=== PATIENT | female | born 1980 | race Two or more races ===

== ENCOUNTER 2022-07-20 19:32 | Inpatient (IN) | payer MEDICAID, OTHER ==
[~2022-07-20] VITALS: Ht 165.1 cm; Wt 65.8 kg
--- NOTE | 2022-07-20 19:36 | NUR ---
20G IV AT [facility]. BLOOD DRAWN AND SENT TO LAB
--- NOTE | 2022-07-20 19:36 | NUR ---
RT AT PT'S BEDSIDE
--- NOTE | 2022-07-20 19:45 | NUR ---
MAHAMED FROM AN APARTMENT [place]OUTY[place]. LETHARGIC AND IN RESP DISTRESS. PER EMS, PT WAS WALKING DOWN A STAIRWAY WHEN SHE EAMON REPORTED TO HAVE FALLEN FROM THE LAST STEP. PT WAS THEN NOTED UNCONSCIOUS AND UPON EMS ARRIVAL, PT'S O2 SAT WAS NOTED IN THE 80%. PT WAS THEN TRANSPORTED TO HOSPITAL ON CPAP AND WAS SATTING @ 97%. WAS AT THE BEDSIDE. PT ON MONITOR. CA RECEIVED.
--- NOTE | 2022-07-20 19:47 | NUR ---
COVID TEST COLLECTED AND SENT TO LAB
--- NOTE | 2022-07-20 19:50 | NUR ---
XRAY AT BEDSIDE
[2022-07-20] MEDS ORDERED: ETOMIDATE 2 MG/ML VIAL IV ONE (20:00)
[2022-07-20] MEDS ORDERED: PROPOFOL 100 ML IV ONE (20:00)
[2022-07-20] MEDS ORDERED: PROPOFOL 100 ML ONE (20:00)
[2022-07-20] MEDS ORDERED: SUCCINYLCHOLINE CHLORIDE 20 MG/ML VIAL IV ONE (20:00)
[2022-07-20] MEDS ORDERED: IV NS 0.9% 1,000 ML BAG IV ONE ×2 (20:00→20:30)
--- NOTE | 2022-07-20 20:02 | NUR ---
RT Pt orally intubated by ARTURO BENITEZ with 7.5 ETT secured at 22cm at the lip line. Color changed noted on CO2 detector, mist in tube noted, equal breath sounds noted. [facility] on ordered settings of AC mode, rate 18, VT 450, FIO2 100%, PEEP +5. ABG to drawn in an hour. Pt suctioned moderate amount of thick cardona secretions. Alarms set and audible. Vent plugged into red outlet. Ambubag at bedside. Will cont to monitor. Addendum: 07/20/22 at 2243 by AMY CARUSO RT Amended: Links added.
--- NOTE | 2022-07-20 20:02 | NUR ---
PT INTUBATED WITH 20MG ETOMIDATE AND 100MG SUCCICHOLINE. PT INTUBATED WUTH SIZE 7.5 ET TUBE 22 AT THE LIP. POSITIVE FOR COLOR CHANGE.
[2022-07-20 20:07] LABS: HEMATOCRIT 31 % (33-45); HEMOGLOBIN 9.5 g/dL (11.5-14.8); LYMPHOCYTES # (AUTO) 0.5 K/uL (0.8-4.8); LYMPHOCYTES % (AUTO) 7.7 % (20.0-44.0); MEAN CORPUSCULAR HGB CONC 31 g/dl (31.0-36.0); MEAN CORPUSCULAR VOLUME 90 fL (82-100); MONOCYTES # (AUTO) 0.2 K/uL (0.1-1.30); MONOCYTES % (AUTO) 2.9 % (2.0-12.0); NEUTROPHILS # (AUTO) 5.4 K/uL (1.8-8.9); NEUTROPHILS % (AUTO) 89.4 % (43.0-81.0); PLATELET COUNT (AUTO) 204 K/uL (150-450); RED BLOOD CELL COUNT(AUTO) 3.37 MIL/uL (4.0-5.2); WHITE BLOOD COUNT (AUTO) 6.1 K/uL (4.3-11.0)
[2022-07-20] MEDS: CEFTRIAXONE 1GM BAG (ER ONLY) 50 ML IV ONE ×2 (20:07→21:06)
--- NOTE | 2022-07-20 20:09 | NUR ---
14FR OG TUBE INSERTED 60CM AT THE LIP. PLACEMENT CHECKED VIA AUSCULTATION AND GASTRIC CONTENT WITHDRAWEL.
--- NOTE | 2022-07-20 20:10 | NUR ---
XRAY AT BEDSIDE
--- NOTE | 2022-07-20 20:12 | NUR ---
EMT AT BEDSIDE FOR EKG
[2022-07-20 20:16] LABS: CALCIUM, SERUM 8.4 mg/dL (8.5-10.1); CARBON DIOXIDE 14 mmol/L (21-32); CHLORIDE 105 mmol/L (98-107); CREATININE 1.8 mg/dL (0.6-1.3); GLUCOSE 82 mg/dL (74-106); POTASSIUM 2.9 mmol/L (3.5-5.1); SODIUM SERUM 140 mmol/L (136-145); UREA NITROGEN, BLOOD 39 mg/dL (7-18)
[2022-07-20 20:28] LABS: ALANINE AMINOTRANSFERASE 27 U/L (12-78); ALBUMIN 2.1 g/dL (3.4-5.0); ALKALINE PHOSPHATASE 80 U/L (46-116); ASPARTATE AMINOTRANSFERASE 28 U/L (15-37); BILIRUBIN,DIRECT 0.3 mg/dL (0.0-0.2); BILIRUBIN,TOTAL 0.4 mg/dL (0.2-1.0); TOTAL PROTEIN, SERUM 6.4 g/dL (6.4-8.2)
[2022-07-20] MEDS ORDERED: AZITHROMYCIN 500 MG in IV D5W 250 ML IV ONE (20:30)
[2022-07-20] MEDS ORDERED: NOREPINEPHRINE 8 MG in IV NS 0.9% 250 ML IV ONE (20:30)
--- NOTE | 2022-07-20 20:58 | NUR ---
RT AT BEDSIDE FOR ABG
--- NOTE | 2022-07-20 20:59 | NUR ---
PROCAL [id number]
[2022-07-20] MEDS ORDERED: CEFTRIAXONE 1GM BAG (ER ONLY) 50 ML IV ONE (21:02)
--- NOTE | 2022-07-20 21:03 | NUR ---
[facility] PAGED
[2022-07-20 21:09] LABS: ABG BASE EXCESS -17.9 mmol/L; ABG PCO2 37.2 mmHg (35.0-45.0); ABG PH 7.085 (7.350-7.450); ABG PO2 91.5 mmHg (75.0-100.0); COHb 0.5 % (0.5-1.5); MetHb 0.3 % (0.0-1.5); O2Hb 92.6 % (94.0-97.0); SITE, ABG Right Radial
[2022-07-20] MEDS ORDERED: AZITHROMYCIN 500 MG VIAL ONE (21:15)
[2022-07-20] MEDS ORDERED: IV NS 0.9% 500 ML BAG IV ONE (21:30)
--- NOTE | 2022-07-20 21:34 | NUR ---
RN AT BEDSIDE FOR PICC LINE INSERTION
[2022-07-20] MEDS ORDERED: MAG HYDROX/AL HYDROX/SIMETH 30 ML UDC PO PRN (22:30)
[2022-07-20] MEDS ORDERED: methylPREDNISolone SOD SUCC 125 MG/2ML VIAL IV SCH (22:30)
[2022-07-20] MEDS ORDERED: Z GUARD REMEDY 4 OZ OINT TP PRN (22:30)
[2022-07-20] MEDS ORDERED: IV NS 0.9% 1,000 ML IV PRN (22:30)
[2022-07-20] MEDS ORDERED: ZOLPIDEM TARTRATE 5 MG TABLET PO PRN (22:30)
[2022-07-20] MEDS ORDERED: ONDANSETRON HCL/PF 4 MG/2 ML VIAL IVP PRN (22:30)
[2022-07-20] MEDS ORDERED: MAGNESIUM HYDROXIDE 30 ML UDC PO PRN (22:30)
--- NOTE | 2022-07-20 22:44 | NUR ---
REPORT GIVEN TO DEENA
[2022-07-20] MEDS ORDERED: VANCOMYCIN 1.25 GM in IV D5W 250 ML IV ONE (23:00)
[2022-07-20] MEDS ORDERED: PROPOFOL 100 ML IV PRN (23:00)
--- NOTE | 2022-07-20 23:18 | NUR ---
PT TRANSPORTED TO ROOM 260 ON CARDIAC PER ACLS. PRPOPFOL INFUSING AT 40MCG/KG/MIN AND LEVOPHED INFUSING AT 0.4MCG/KG/MIN
[2022-07-20 23:30] LABS: BILIRUBIN,URINE NEGATIVE (NEGATIVE); COLOR,URINE YELLOW (YELLOW); LEUKOCYTE ESTERASE ,URINE NEGATIVE (NEGATIVE); NITRITE, URINE NEGATIVE (NEGATIVE); PROTEIN,URINE 30 mg/dl (NEGATIVE); UGLUCOSE NEGATIVE (NEGATIVE); UROBILINOGEN,URINE 0.2 EU/dL (0.2)
[2022-07-20 23:30] LABS: BILIRUBIN,URINE NEGATIVE (NEGATIVE); COLOR,URINE YELLOW (YELLOW); LEUKOCYTE ESTERASE ,URINE NEGATIVE (NEGATIVE); NITRITE, URINE NEGATIVE (NEGATIVE); PROTEIN,URINE 30 mg/dl (NEGATIVE); UGLUCOSE NEGATIVE (NEGATIVE); UROBILINOGEN,URINE 0.2 EU/dL (0.2)
[2022-07-20] MEDS: NOREPINEPHRINE 8 MG in IV NS 0.9% 242 ML IV PRN (23:30)
[2022-07-20 23:31] VITALS: BP 120/58
[2022-07-20 23:38] LABS: BACTERIA,URINE Rare /HPF (None Seen); RBC,URINE 0-2 /HPF (0-2); SQUAMOUS EPITHELIAL CELL,UR Few /HPF (None Seen)
[2022-07-20 23:39] LABS: BACTERIA,URINE Rare /HPF (None Seen); RBC,URINE 0-2 /HPF (0-2); SQUAMOUS EPITHELIAL CELL,UR Few /HPF (None Seen)
[2022-07-20 23:40] LABS: COARSE GRANULAR CASTS,URINE Rare /LPF (None Seen)
[2022-07-20 23:45] VITALS: BP 117/56
[2022-07-20] MEDS: POTASSIUM CL. PREMIX PERIPHER. 50 ML IV SCH (23:46)
[2022-07-20] MEDS ORDERED: SODIUM BICARBONATE SYR 50 MEQ/50 ML DISP.SYRIN ONE (23:55)
[2022-07-21] VITALS (96 sets, daily range): BP systolic 80–171; BP diastolic 35–104
[2022-07-21] MEDS: PANTOPRAZOLE 40 MG VIAL IV SCH ×2 (00:03→08:29)
[2022-07-21] MEDS: HEPARIN SODIUM, PORCINE 5000 UNITS/1 ML VIAL SQ SCH ×2 (00:03→09:13)
--- NOTE | 2022-07-21 00:05 | NUR ---
RN NOTE 07/20/22 3369 ADMITTED FROM ER WITH DIAGNOSIS OF RESPIRATORY FAILURE. PT ORALLY INTUBATED, CONNECTED TO VENT AC 18 TV 450 FIO2 100% P 5. PT TACHYPNEIC, WITH O2 SAT AT 84-86%. ALREADY ON PROPOFOL AT 50MCG/KG/MIN. RT AT BEDSIDE. NOTIFIED MACHINE ETCHER BAMBI, WITH NEW ORDER TO INCREASE PROPOFOL AND MAY TITRATE UP TO 100MCG/KG/MIN. ALSO NOTIFIED MACHINE ETCHER REGARDING TROPONIN 135 RESULT. PT ON LEVOPHED AT 0.4MCG/KG/MIN. OGT IN PLACE, PATENT. AUSCULTATED FOR PLACEMENT. BILATERAL SOFT WRIST RESTRAINTS ON. MOTLEY CATH IN PLACE, DRAINING BY GRAVITY. KAITLIN PICC AND RAC IV PATENT AND INTACT. SKIN INTACT. ALL BELONGINGS LISTED. WILL CONTINUE TO MONITOR.
[2022-07-21] MEDS ORDERED: VANCOMYCIN 1 GM VIAL ONE (00:06)
[2022-07-21] MEDS: SODIUM BICARBONATE SYR 100 MEQ in IV NS 0.9% 1,000 ML IV PRN ×2 (00:15→10:31)
[2022-07-21] MEDS: POTASSIUM CL. PREMIX PERIPHER. 50 ML IV SCH ×9 (00:21→16:21)
[2022-07-21] MEDS: PROPOFOL 100 ML IV PRN ×7 (00:23→19:48)
[2022-07-21] MEDS ORDERED: NOREPINEPHRINE 8MG/250ML RTU 250 ML IV ONE ×2 (01:54→05:01)
[2022-07-21] MEDS: NOREPINEPHRINE 8 MG in IV NS 0.9% 242 ML IV PRN ×3 (01:57→08:30)
--- NOTE | 2022-07-21 04:01 | NUR ---
RT NOTE ABG OBTAINED AT THIS TIME.
[2022-07-21 04:02] LABS: ABG BASE EXCESS -11.5 mmol/L; ABG OXYGEN SATURATION 88.4 % (92.0-98.5); ABG PCO2 45.4 mmHg (35.0-45.0); ABG PH 7.175 (7.350-7.450); ABG PO2 64.1 mmHg (75.0-100.0); AaDO2 603.5 mmHg; COHb 0.3 % (0.5-1.5); MetHb 0.3 % (0.0-1.5); O2Hb 87.9 % (94.0-97.0); SITE, ABG Left Radial; VENT MODE, BG AC 18 450 100% +5; VT, ABG 475 mL
--- NOTE | 2022-07-21 04:05 | NUR ---
RN NOTE ABG RESULTS RELAYED TO PARTH LACY. NO NEW ORDER WERE MADE. O2 SAT IMPROVED TO 96% NOW. WILL CONTINUE TO MONITOR.
[2022-07-21] MEDS ORDERED: methylPREDNISolone SOD SUCC 125 MG/2ML VIAL IV SCH (05:23)
[2022-07-21 05:31] LABS: EOSINOPHILS % (AUTO) 0.1 % (0.0-6.0); HEMATOCRIT 28 % (33-45); HEMOGLOBIN 8.8 g/dL (11.5-14.8); LYMPHOCYTES # (AUTO) 0.3 K/uL (0.8-4.8); LYMPHOCYTES % (AUTO) 10.9 % (20.0-44.0); MEAN CORPUSCULAR HGB CONC 32 g/dl (31.0-36.0); MEAN CORPUSCULAR VOLUME 89 fL (82-100); MONOCYTES # (AUTO) 0.1 K/uL (0.1-1.30); MONOCYTES % (AUTO) 2.2 % (2.0-12.0); NEUTROPHILS # (AUTO) 2.3 K/uL (1.8-8.9); NEUTROPHILS % (AUTO) 86.8 % (43.0-81.0); PLATELET COUNT (AUTO) 140 K/uL (150-450); RED BLOOD CELL COUNT(AUTO) 3.12 MIL/uL (4.0-5.2); WHITE BLOOD COUNT (AUTO) 2.6 K/uL (4.3-11.0)
--- NOTE | 2022-07-21 06:57 | NUR ---
RN NOTE PT CONTINUE WITH VENT SETTINGS. NO SIGNS OF DISTRESS. LEVOPHED RUNNING AT 0.8MCG/KG/MIN, PROPOFOL AT 70MCG/KG/MIN AND NA BICARB AT 100ML/HR. ALL INFUSING WELL. OGT REMAIN IN PLACE. MOTLEY CATH DRAINING ADEQUATE AMOUNT OF URINE. OFF RESTRAINTS. WILL ENDORSE TO NEXT SHIFT NURSE FOR KYLAH.
[2022-07-21] MEDS: methylPREDNISolone SOD SUCC 125 MG/2ML VIAL IV SCH ×2 (07:39→15:43)
[2022-07-21 07:47] LABS: CALCIUM, SERUM 7.4 mg/dL (8.5-10.1); CREATININE 1.3 mg/dL (0.6-1.3); MAGNESIUM 1.6 mg/dL (1.8-2.4); POTASSIUM 3.1 mmol/L (3.5-5.1)
[2022-07-21] MEDS: FLUDROCORTISONE 0.1 MG TABLET NG SCH (08:09)
[2022-07-21 08:18] LABS: THYROID STIMULATING HORMONE 0.063 uIU/mL (0.358-3.74)
[2022-07-21] MEDS ORDERED: CEFEPIME 1 GM in IV D5W 50 ML IV SCH (09:00)
[2022-07-21] MEDS: CEFEPIME 2 GM in IV D5W 100 ML IV SCH ×2 (09:12→21:46)
[2022-07-21] MEDS ORDERED: NOREPINEPHRINE 32 MG in IV NS 0.9% 218 ML IV PRN (10:00)
[2022-07-21] MEDS: NOREPINEPHRINE 32 MG in IV NS 0.9% 218 ML IV PRN ×2 (10:34→19:11)
--- NOTE | 2022-07-21 11:05 | NUR ---
RT NOTE INCREASED RR TO 30 AND DECREASED FIO2 TO 80%. WILL CONTINUE TO MONITOR THE PATIENT CLOSELY. Addendum: 07/21/22 at 1543 by ANDRIA HYLTON RT Amended: Links added.
[2022-07-21] MEDS: VANCOMYCIN HCL 0.75 GM in IV D5W 250 ML IV SCH ×2 (11:24→23:58)
[2022-07-21] MEDS: ACETAMINOPHEN 325 MG TABLET PO PRN ×2 (11:24→15:55)
[2022-07-21 11:30] LABS: ABG BASE EXCESS -14.1 mmol/L; ABG OXYGEN SATURATION 89.2 % (92.0-98.5); ABG PCO2 45.7 mmHg (35.0-45.0); ABG PO2 70.8 mmHg (75.0-100.0); AaDO2 451.6 mmHg; COHb 0.1 % (0.5-1.5); MetHb 0.3 % (0.0-1.5); O2Hb 88.8 % (94.0-97.0); PEEP,BG 5 cm H2O; SITE, ABG Left Radial; VT, ABG 450 mL
[2022-07-21] MEDS: FENTANYL CITRAT IV 2,500 MCG in IV NS 0.9% 200 ML IV PRN (12:06)
[2022-07-21] MEDS: Sodium Bicarbonate 150 MEQ in IV D5W 1,000 ML IV SCH ×2 (12:29→23:40)
[2022-07-21] MEDS ORDERED: ETOMIDATE 2 MG/ML VIAL IV ONE (13:19)
[2022-07-21] MEDS ORDERED: SUCCINYLCHOLINE CHLORIDE 20 MG/ML VIAL IJ ONE (13:19)
[2022-07-21] MEDS: Magnesium 1GM/D5W 100ML PREMIX 100 ML IV SCH ×2 (14:04→15:09)
[2022-07-21] MEDS: VASOPRESSIN INJ 40 UNIT in IV NS 0.9% 38 ML IV PRN (14:20)
[2022-07-21 17:08] LABS: ABG BASE EXCESS -9.6 mmol/L; ABG OXYGEN SATURATION 92.2 % (92.0-98.5); ABG PCO2 41.7 mmHg (35.0-45.0); ABG PH 7.234 (7.350-7.450); ABG PO2 76.1 mmHg (75.0-100.0); AaDO2 378.2 mmHg; COHb 0.4 % (0.5-1.5); MetHb 0.3 % (0.0-1.5); O2Hb 91.6 % (94.0-97.0); PEEP,BG 5 cm H2O; SITE, ABG Right Radial; VT, ABG 450 mL
--- NOTE | 2022-07-21 17:20 | NUR ---
SPOKE TO (MICHEL) CELL PHONE # [phone]
--- NOTE | 2022-07-21 18:04 | NUR ---
PT TEMP, 102.7. TYLENOL TIME LIMIT NOT YET REACHED TO GIVE. INITIATED COOLING MEASURES WITH COOLING BLANKET.
--- NOTE | 2022-07-21 18:35 | NUR ---
RN CLOSING NOTES PT IS IN BED, SEDATED, NON RESPONSIVE, ON ORDERED MECH. VENT SETTINGS SATING AT 97%. TELE READS ST 109. DANIEL AND TIESHA IN TACT AND PATENT. PT IS NPO, IV ACCESS ON KAITLIN PICC AND RAC 20G. PROPOFOL RUNNING 45MCG/KG/MIN, LEVO @ 0.5MCG/KG,MIN, D5 BICARB @100ML/HR, VASOPRESSIN @0.02 U/MIN, AND HEPARIN DRIP SOON TO BEGIN AT 1150 U/HR. ALL SAFETY MEASURES IN PLACE, FALL PRECAUTIONS IN PLACE. WILL ENDORSE TO CONSUMER SERVICES CONSULTANT NURSE FOR KYLAH.
[2022-07-21] MEDS: HEPARIN INFUSION/D5W 500 ML IV PRN (20:03)
--- NOTE | 2022-07-21 20:19 | NUR ---
RCVD PT ORALLY INTUBATED W/ ETT 7.5 SECURED @ 22 CM LIP LINE ON [facility] VENT SETTINGS OF AC 30,VT 450, FIO2 60% PEEP 5.. PT IS SEDATED , NO RESPONSE TO STIMULI WHEN SUCTIONED. VENT PLUGGED INTO RED OUTLET , VENT ALARMS ON AND AUDIBLE. AMBU BAG @ BEDSIDE. WILL CONTINUE TO MONITOR T/O SHIFT.
--- NOTE | 2022-07-21 20:30 | NUR ---
RN NOTE RECEIVED PT ORALLY INTUBATED, CONNECTED TO MECENT WITH SETTINGS AC30 TV450 FIO2 60% P5. NO RESPONSE TO STIMULI, SEDATED WITH PROPOFOL. HEPARIN DRIP STARTED AT 1150U/HR ORDERED, NO SIGNS OF BLEEDING NOTED. R&L EJ INSERTED BY CHARGE NURSE, INTACT AND PATENT. LEVOPHED AT 0.5MCG/KG/MIN,VASOPRESSIN AT 0.02U/MIN, FENTANYL AT 50MCG/HR AND NA BICARB IN D5W AT 100ML/HR ALL INFUSING WELL. MOTLEY DRAINING WELL. TEMP AT 102.5, COOLING BLANKET IN PLACE. WILL CONTINUE TO MONITOR.
[2022-07-21] MEDS: AZITHROMYCIN 500 MG in IV D5W 250 ML IV SCH (20:31)
--- NOTE | 2022-07-21 21:19 | NUR ---
RN NOTE BLOOD CULTURE RESULT GRAM POSITIVE COCCI IN CLUSTERS, RELAYED TO SAVINGS TELLER INSURANCE SPECIAL AGENT CATIE, NO NEW ORDER WERE MADE.
[2022-07-21 21:44] LABS: BAND % (MANUAL) 42 % (0.0-5.0); LYMPHOCYTES % (MANUAL) 12 % (16-48); METAMYELOCYTES % 28 % (0-0); MONOCYTES % (MANUAL) 4 % (0-11.0); NEUTROPHILS % (MANUAL) 14 (42-76)
[2022-07-22] VITALS (95 sets, daily range): BP systolic 79–144; BP diastolic 33–95
[2022-07-22] MEDS ORDERED: VANCOMYCIN 1.25 GM in IV D5W 250 ML IV SCH ×2
[2022-07-22] MEDS: methylPREDNISolone SOD SUCC 125 MG/2ML VIAL IV SCH ×4 (00:01→23:56)
--- NOTE | 2022-07-22 00:38 | NUR ---
RN NOTE BODY TEMP COOLING DOWN NOW AT 100.3. CONTINUE WITH COOLING MEASURES.
[2022-07-22 02:34] LABS: BASOPHILS % (AUTO) 0.1 % (0.0-2.0); EOSINOPHILS % (AUTO) 0.1 % (0.0-6.0); HEMATOCRIT 25 % (33-45); HEMOGLOBIN 7.9 g/dL (11.5-14.8); LYMPHOCYTES # (AUTO) 1.1 K/uL (0.8-4.8); LYMPHOCYTES % (AUTO) 5.1 % (20.0-44.0); MEAN CORPUSCULAR HGB CONC 31 g/dl (31.0-36.0); MEAN CORPUSCULAR VOLUME 90 fL (82-100); MONOCYTES # (AUTO) 0.3 K/uL (0.1-1.30); MONOCYTES % (AUTO) 1.5 % (2.0-12.0); NEUTROPHILS # (AUTO) 19.2 K/uL (1.8-8.9); NEUTROPHILS % (AUTO) 93.2 % (43.0-81.0); PLATELET COUNT (AUTO) 75 K/uL (150-450); RED BLOOD CELL COUNT(AUTO) 2.77 MIL/uL (4.0-5.2); WHITE BLOOD COUNT (AUTO) 20.6 K/uL (4.3-11.0)
[2022-07-22 03:15] LABS: CALCIUM, SERUM 7.1 mg/dL (8.5-10.1); CREATININE 1.4 mg/dL (0.6-1.3); MAGNESIUM 2.4 mg/dL (1.8-2.4); PHOSPHORUS 4.6 mg/dL (2.5-4.9)
[2022-07-22] MEDS: PROPOFOL 100 ML IV PRN ×3 (03:29→17:42)
--- NOTE | 2022-07-22 04:13 | NUR ---
RN NOTE PTT RESULT 86.7. PER PROTOCOL, TO DECREASE HEPARIN DRIP BY 2U/KG/H = 150U/HR. DECREASE RATE T0 1000U/HR. PT PLATELET 75. NOTIFIED PARTH DUBON, TO REPEAT CBC IN 4HOURS. NO SIGNS OF BLEEDING.
[2022-07-22 05:45] LABS: ABG BASE EXCESS -7.4 mmol/L; ABG OXYGEN SATURATION 92.3 % (92.0-98.5); ABG PCO2 47.1 mmHg (35.0-45.0); ABG PH 7.238 (7.350-7.450); ABG PO2 76.2 mmHg (75.0-100.0); AaDO2 299.8 mmHg; COHb 0.1 % (0.5-1.5); O2Hb 92.2 % (94.0-97.0); PEEP,BG 5 cm H2O; SITE, ABG Left Radial; VT, ABG 450 mL
[2022-07-22] MEDS: VASOPRESSIN INJ 40 UNIT in IV NS 0.9% 38 ML IV PRN (07:04)
--- NOTE | 2022-07-22 07:30 | NUR ---
RN NOTE PT TOLERATING MECH VENT SETTING. PT WITH NO RESPONSE TO STIMULI. TITRATED PROPOFOL. NO DISTRESS NOTED. SR ON TELE MONITOR HR 93. CONTINUE WITH PRESSORS, NA BICARB AT 100ML/HR AND HEPARIN DRIP AT 1000U/HR. ALL INFUSING WELL, NO SIGNS OF INFILTRATION NOTED. NO SIGNS OF BLEEDING NOTED. OGT REMAIN IN PLACE. MOTLEY IN PLACE. GOOD AMOUNT OF URINE OUTPUT. 4NECKLACES REMOVED FROM PT, PLACED IN PTS PURSE, ENDORSED TO BISI. PT DID NOT COME LAST NIGHT, NO PHONE CALL WELL.
--- NOTE | 2022-07-22 07:35 | NUR ---
RN NOTE PT FOUND SEMI FOWLERS DISPLAYING NO S/S OF DISTRESS, FLACC = 0, RIKERS = 2 AND BILATERAL RISE AND FALL OF THE CHEST OBSERVED. L EJ 20G R EJ 22G ARE PATENT AND INTACT. R UA PICC IS PATENT AND INTACT. MOTLEY CATH RESERVOIR IS BELOW PATIENT DRAINING BY GRAVITY. COOLING BLANKET ON. RN WILL CONTINUE CARE PLAN AND ANTICIPATE NEEDS. SAFETY MEASURES IN PLACE, BED LOCKED AND IN LOWEST POSITION, SIDE RAILS UPX2, CALL LIGHT WITHIN REACH, BED ALARM ARMED.
[2022-07-22] MEDS: CEFEPIME 2 GM in IV D5W 100 ML IV SCH ×2 (08:22→21:49)
[2022-07-22] MEDS: PANTOPRAZOLE 40 MG VIAL IV SCH (08:22)
[2022-07-22] MEDS: FLUDROCORTISONE 0.1 MG TABLET NG SCH (08:28)
[2022-07-22 08:44] LABS: BASOPHILS % (AUTO) 0.1 % (0.0-2.0); HEMATOCRIT 25 % (33-45); HEMOGLOBIN 7.9 g/dL (11.5-14.8); LYMPHOCYTES # (AUTO) 1.3 K/uL (0.8-4.8); LYMPHOCYTES % (AUTO) 5.6 % (20.0-44.0); MEAN CORPUSCULAR HGB CONC 31 g/dl (31.0-36.0); MEAN CORPUSCULAR VOLUME 89 fL (82-100); MONOCYTES # (AUTO) 0.4 K/uL (0.1-1.30); MONOCYTES % (AUTO) 1.8 % (2.0-12.0); NEUTROPHILS # (AUTO) 22.1 K/uL (1.8-8.9); NEUTROPHILS % (AUTO) 92.5 % (43.0-81.0); PLATELET COUNT (AUTO) 77 K/uL (150-450); RED BLOOD CELL COUNT(AUTO) 2.86 MIL/uL (4.0-5.2); WHITE BLOOD COUNT (AUTO) 23.9 K/uL (4.3-11.0)
[2022-07-22] MEDS: NOREPINEPHRINE 32 MG in IV NS 0.9% 218 ML IV PRN ×2 (08:44→23:01)
[2022-07-22 09:07] LABS: *ANA ANTI-CENTROMERE B AB <0.2 AI (0.0-0.9); *ANA ANTI-DNA(DS) AB, QN 1 IU/mL (0-9); *ANA ANTI-JO-1 <0.2 AI (0.0-0.9); *ANA ANTICHROMATIN ANTIBODY <0.2 AI (0.0-0.9); *ANA RNP ANTIBODIES <0.2 AI (0.0-0.9); *ANA SJOGREN'S ANTI-SS-A <0.2 AI (0.0-0.9); *ANA SJOGREN'S ANTI-SS-B <0.2 AI (0.0-0.9); *ANAANTI-SCLERODERMA-70 AB <0.2 AI (0.0-0.9); *ANASMITH AB <0.2 AI (0.0-0.9)
[2022-07-22] MEDS: POTASSIUM CL. PREMIX PERIPHER. 50 ML IV SCH ×4 (10:18→13:24)
[2022-07-22] MEDS: Magnesium 1GM/D5W 100ML PREMIX 100 ML IV SCH ×2 (10:28→11:28)
[2022-07-22] MEDS: Sodium Bicarbonate 150 MEQ in IV D5W 1,000 ML IV SCH ×2 (10:56→23:01)
[2022-07-22] MEDS: VANCOMYCIN HCL 0.75 GM in IV D5W 250 ML IV SCH ×2 (12:21→23:55)
[2022-07-22] MEDS: JEVITY 1.2 CAL 1,000 ML BOTTLE GT PRN (12:58)
[2022-07-22 14:19] LABS: BAND % (MANUAL) 38 % (0.0-5.0); LYMPHOCYTES % (MANUAL) 9 % (16-48); METAMYELOCYTES % 31 % (0-0); MONOCYTES % (MANUAL) 6 % (0-11.0); MYELOCYTES % 2 % (0-0); NEUTROPHILS % (MANUAL) 14 (42-76)
[2022-07-22] MEDS: FENTANYL CITRAT IV 2,500 MCG in IV NS 0.9% 200 ML IV PRN (17:42)
[2022-07-22] MEDS: HEPARIN INFUSION/D5W 500 ML IV PRN (19:05)
--- NOTE | 2022-07-22 19:20 | NUR ---
RN NOTE PT FOUND SEMI FOWLERS DISPLAYING NO S/S OF DISTRESS, FLACC = 0, RIKERS = 2 AND BILATERAL RISE AND FALL OF THE CHEST OBSERVED. L EJ 20G R EJ 22G ARE PATENT AND INTACT. R UA PICC IS PATENT AND INTACT. MOTLEY CATH RESERVOIR IS BELOW PATIENT DRAINING BY GRAVITY. COOLING BLANKET OFF. TF ONGOING, NO RESIDUAL MEASURED AT CHANGE OF SHIFT. SBAR AND REPORT GIVEN TO FINANCIAL SYSTEMS DIRECTOR RN, ALL QUESTIONS ANSWERED. SAFETY MEASURES IN PLACE, BED LOCKED AND IN LOWEST POSITION, SIDE RAILS UPX2, CALL LIGHT WITHIN REACH, BED ALARM ARMED.
--- NOTE | 2022-07-22 20:00 | NUR ---
RN NOTE RECEIVED PT ON MECHVENT, STILL SEDATED WITH MD NOTES TO CONTINUE DOSE. OGT IN PLACE AND PATENT, ON JEVITY FEEDING AT 55ML/HR, NO RESIDUALS NOTED. HOB ELEVATED. ALL DRIPS INFUSING WELL, KAITLIN PICC LINE, REJ AND LEJ INTACT AND PATENT. MOTLEY DRAINING URINE BY GRAVITY. WILL CONTINUE TO MONITOR.
[2022-07-22] MEDS: AZITHROMYCIN 500 MG in IV D5W 250 ML IV SCH (20:16)
[2022-07-22] MEDS: IV NS 0.9% 250 ML IV PRN (20:20)
[2022-07-22 21:41] LABS: BAND % (MANUAL) 17 % (0.0-5.0); LYMPHOCYTES % (MANUAL) 5 % (16-48); METAMYELOCYTES % 18 % (0-0); MONOCYTES % (MANUAL) 6 % (0-11.0); NEUTROPHILS % (MANUAL) 54 (42-76)
[2022-07-23] VITALS (90 sets, daily range): BP systolic 80–161; BP diastolic 34–95
[2022-07-23] MEDS: PROPOFOL 100 ML IV PRN ×4 (02:31→21:59)
[2022-07-23 04:08] LABS: HEMATOCRIT 23 % (33-45); HEMOGLOBIN 7.5 g/dL (11.5-14.8); LYMPHOCYTES # (AUTO) 0.9 K/uL (0.8-4.8); LYMPHOCYTES % (AUTO) 3.8 % (20.0-44.0); MEAN CORPUSCULAR HGB CONC 32 g/dl (31.0-36.0); MEAN CORPUSCULAR VOLUME 85 fL (82-100); MONOCYTES # (AUTO) 0.6 K/uL (0.1-1.30); MONOCYTES % (AUTO) 2.6 % (2.0-12.0); NEUTROPHILS # (AUTO) 21.2 K/uL (1.8-8.9); NEUTROPHILS % (AUTO) 93.6 % (43.0-81.0); PLATELET COUNT (AUTO) 55 K/uL (150-450); RED BLOOD CELL COUNT(AUTO) 2.75 MIL/uL (4.0-5.2); WHITE BLOOD COUNT (AUTO) 22.6 K/uL (4.3-11.0)
[2022-07-23 04:19] LABS: CALCIUM, SERUM 7.6 mg/dL (8.5-10.1); MAGNESIUM 2.8 mg/dL (1.8-2.4); PHOSPHORUS 1.5 mg/dL (2.5-4.9)
[2022-07-23 04:27] LABS: POTASSIUM 2.4 mmol/L (3.5-5.1)
[2022-07-23 05:09] LABS: BAND % (MANUAL) 22 % (0.0-5.0); BASOPHILS % (MANUAL) 0 % (0.0-2.0); EOSINOPHILS % (MANUAL) 0 % (0-4); LYMPHOCYTES % (MANUAL) 8 % (16-48); MONOCYTES % (MANUAL) 4 % (0-11.0); NEUTROPHILS % (MANUAL) 49 (42-76)
[2022-07-23 05:10] LABS: METAMYELOCYTES % 17 % (0-0)
--- NOTE | 2022-07-23 06:10 | NUR ---
RN NOTE PTT 52.3. PLATELETS 55, POTASSIUM 2.4. REPORTED TO PARTH DUBON. WITH ORDER TO D/C HEPARIN DRIP, NO SIGNS OF BLEEDING AND TO GIVE POTASSIUM 80MEQ IVPB. ORDERS ENDORSED.
[2022-07-23] MEDS ORDERED: POTASSIUM CHLORIDE 10 MEQ/50 ML PREMIXED IVPB FOR PERIPHERAL LINE IV ONE (06:30)
[2022-07-23] MEDS: POTASSIUM CL. PREMIX PERIPHER. 50 ML IV SCH ×8 (06:32→14:08)
--- NOTE | 2022-07-23 06:43 | NUR ---
WOUND CARE CONSULT: REVIEWED CHART, NURSING DOCUMENTATION AND PHOTO WHICH INDICATES SACRAL DEEP TISSUE INJURY WHICH IS INTACT. MULTIPLE CO-MORBIDITIES NOTED INCLUDING ACUTE RESPIRATORY FAILURE (CURRENTLY INTUBATED), SEPTIC SHOCK, AND SEVERE METABOLIC ACIDOSIS. PER Elver BENITEZ DOCUMENTATION, PT WAS FOUND DOWN IN HER APARTMENT STAIRWELL. RECOMMENDATIONS MADE FOR SKIN PROTECTION AND WOUND CARE. DISCUSSED WITH NURSING STAFF. FIRST STEP LOW AIRLOSS MATTRESS IS ON ORDER. MD IN AGREEMENT WITH PLAN OF CARE.
--- NOTE | 2022-07-23 07:10 | NUR ---
RN NOTE PT FIO2 50%, TITRATED BY RT. NO SIGNS OF DISTRESS. TITRATED FENTANYL NOW AT 25MCG/HR. HEPARIN WAS DISCONTINUED. PT WITH NO RESPONSE TO STIMULI. TRIGLYCERIDE TRENDING DOWN. GOOD AMOUNT OF URINE OUTPUT. ENDORSED TO NEXT SHIFT NURSE FOR KYLAH.
--- NOTE | 2022-07-23 07:30 | NUR ---
RN NOTE PT FOUND SEMI FOWLERS DISPLAYING NO S/S OF DISTRESS, FLACC = 0, RIKERS = 3 AND BILATERAL RISE AND FALL OF THE CHEST OBSERVED. L EJ 20G R EJ 22G ARE PATENT AND INTACT. R UA PICC IS PATENT AND INTACT. MOTLEY CATH RESERVOIR IS BELOW PATIENT DRAINING BY GRAVITY. COOLING BLANKET ON. RN WILL CONTINUE CARE PLAN AND ANTICIPATE NEEDS. SAFETY MEASURES IN PLACE, BED LOCKED AND IN LOWEST POSITION, SIDE RAILS UPX2, CALL LIGHT WITHIN REACH, BED ALARM ARMED.
[2022-07-23] MEDS: methylPREDNISolone SOD SUCC 125 MG/2ML VIAL IV SCH ×3 (08:23→23:10)
[2022-07-23] MEDS: CEFEPIME 2 GM in IV D5W 100 ML IV SCH ×2 (08:24→20:30)
[2022-07-23] MEDS: PANTOPRAZOLE 40 MG VIAL IV SCH (08:24)
[2022-07-23] MEDS: FLUDROCORTISONE 0.1 MG TABLET NG SCH (08:24)
[2022-07-23 08:40] LABS: ABG BASE EXCESS 3.1 mmol/L; ABG OXYGEN SATURATION 88.8 % (92.0-98.5); ABG PCO2 37.3 mmHg (35.0-45.0); ABG PH 7.475 (7.350-7.450); ABG PO2 56.7 mmHg (75.0-100.0); AaDO2 257.8 mmHg; COHb 0.5 % (0.5-1.5); MetHb 0.3 % (0.0-1.5); O2Hb 88.1 % (94.0-97.0); PEEP,BG 5 cm H2O; SITE, ABG Right Radial; VENT MODE, BG AC 50%; VT, ABG 475 mL
[2022-07-23] MEDS: Sodium Bicarbonate 150 MEQ in IV D5W 1,000 ML IV SCH (10:10)
[2022-07-23] MEDS ORDERED: K PHOS NEUTRAL 250 MG TABLET GT ONE (12:00)
[2022-07-23] MEDS: VANCOMYCIN HCL 0.75 GM in IV D5W 250 ML IV SCH (12:52)
[2022-07-23] MEDS: Potassium Chloride 30 MEQ in IV D5/0.45 NACL 1,000 ML IV SCH (14:30)
[2022-07-23] MEDS: JEVITY 1.2 CAL 1,000 ML BOTTLE GT PRN (14:55)
[2022-07-23] MEDS: FENTANYL CITRAT IV 2,500 MCG in IV NS 0.9% 200 ML IV PRN (17:18)
--- NOTE | 2022-07-23 19:20 | NUR ---
RN NOTE PT FOUND SEMI FOWLERS DISPLAYING NO S/S OF DISTRESS, FLACC = 0, RIKERS = 3 AND BILATERAL RISE AND FALL OF THE CHEST OBSERVED. L EJ 20G R EJ 22G ARE PATENT AND INTACT. R UA PICC IS PATENT AND INTACT. MOTLEY CATH RESERVOIR IS BELOW PATIENT DRAINING BY GRAVITY. COOLING BLANKET ON. SBAR AND REPORT GIVEN TO FLUE LINING DIPPER RN, ALL QUESTIONS ANSWERED. SAFETY MEASURES IN PLACE, BED LOCKED AND IN LOWEST POSITION, SIDE RAILS UPX2, CALL LIGHT WITHIN REACH, BED ALARM ARMED.
[2022-07-23] MEDS: AZITHROMYCIN 500 MG in IV D5W 250 ML IV SCH (19:30)
[2022-07-23] MEDS: IV NS 0.9% 250 ML IV PRN (20:30)
[2022-07-23] MEDS: NOREPINEPHRINE 32 MG in IV NS 0.9% 218 ML IV PRN (22:00)
[2022-07-24] VITALS (96 sets, daily range): BP systolic 85–159; BP diastolic 49–110
[2022-07-24] MEDS: PROPOFOL 100 ML IV PRN ×4 (02:50→20:59)
[2022-07-24 04:40] LABS: BASOPHILS % (AUTO) 0.1 % (0.0-2.0); HEMATOCRIT 21 % (33-45); LYMPHOCYTES # (AUTO) 1.5 K/uL (0.8-4.8); LYMPHOCYTES % (AUTO) 7.6 % (20.0-44.0); MEAN CORPUSCULAR HGB CONC 33 g/dl (31.0-36.0); MEAN CORPUSCULAR VOLUME 85 fL (82-100); MONOCYTES # (AUTO) 0.6 K/uL (0.1-1.30); MONOCYTES % (AUTO) 3.3 % (2.0-12.0); NEUTROPHILS # (AUTO) 17.3 K/uL (1.8-8.9); RED BLOOD CELL COUNT(AUTO) 2.53 MIL/uL (4.0-5.2); WHITE BLOOD COUNT (AUTO) 19.4 K/uL (4.3-11.0)
[2022-07-24 04:55] LABS: PLATELET COUNT (AUTO) 23 K/uL (150-450)
[2022-07-24 05:07] LABS: CALCIUM, SERUM 6.7 mg/dL (8.5-10.1); CREATININE 0.8 mg/dL (0.6-1.3); MAGNESIUM 2.4 mg/dL (1.8-2.4)
[2022-07-24 05:09] LABS: POTASSIUM 2.6 mmol/L (3.5-5.1)
[2022-07-24] MEDS: POTASSIUM CL. PREMIX PERIPHER. 50 ML IV SCH ×6 (05:39→15:10)
[2022-07-24 05:49] LABS: BAND % (MANUAL) 21 % (0.0-5.0); BASOPHILS % (MANUAL) 0 % (0.0-2.0); EOSINOPHILS % (MANUAL) 0 % (0-4); LYMPHOCYTES % (MANUAL) 9 % (16-48); METAMYELOCYTES % 12 % (0-0); MONOCYTES % (MANUAL) 2 % (0-11.0); NEUTROPHILS % (MANUAL) 56 (42-76)
--- NOTE | 2022-07-24 06:30 | NUR ---
MANAGER OF CREATIVE SERVICES PT NOTED TO ADI TO MID 40s WITH DESATURATION TO 88%;
[2022-07-24 06:32] LABS: ABG BASE EXCESS 9.2 mmol/L; ABG OXYGEN SATURATION 95.3 % (92.0-98.5); ABG PH 7.557 (7.350-7.450); ABG PO2 75.4 mmHg (75.0-100.0); AaDO2 239.5 mmHg; COHb 0.6 % (0.5-1.5); MetHb 0.3 % (0.0-1.5); O2Hb 94.4 % (94.0-97.0); PEEP,BG 8 cm H2O; SITE, ABG Right Radial; VENT MODE, BG AC 30 475 50% +8; VT, ABG 450 mL
--- NOTE | 2022-07-24 07:30 | NUR ---
OPENING NOTE: REPORT RECEIVED FROM ELLE JACINTO. ORDERS AND LABS REVIEWED DURING REPORT. PER REPORT PT IS INTUBATED AND SEDATED WITH BOTH PROPOFOL AND FENTANYL. LEVOPHED GTT INFUSING AT 0.1 MCG/KG/MIN PER MD ORDERS. TUBE FEEDING INFUSING PER MD ORDERS. PT CHECKED ON HOURLY AND PRN BY NURSING STAFF.
[2022-07-24] MEDS: FLUDROCORTISONE 0.1 MG TABLET NG SCH (09:18)
[2022-07-24] MEDS: methylPREDNISolone SOD SUCC 125 MG/2ML VIAL IV SCH ×3 (09:19→23:16)
[2022-07-24] MEDS: CEFEPIME 2 GM in IV D5W 100 ML IV SCH ×2 (09:19→21:30)
[2022-07-24] MEDS: PANTOPRAZOLE 40 MG VIAL IV SCH (09:20)
--- NOTE | 2022-07-24 10:00 | NUR ---
PER DR PELEG KEEP PROPOFOL AT 40 MCG/KG/MIN, DO NOT TITRATE HIGHER OR LOWER. NO SEDATION VACATION TODAY. TITRATE FENTANYL NEEDED FOR SEDATION AND TO KEEP RESPIRATIONS LOW 30'S OR <30. FENTANYL CAN BE TITRATED UP TO 300 MCG/KG/MIN PER DR PELEG. IF PT IS STILL TACHYPNIC WITH FENTANYL AT 300MCG/KG/MIN, MAY START VERSED GTT PER PELEG.
[2022-07-24] MEDS: Potassium Chloride 30 MEQ in IV D5/0.45 NACL 1,000 ML IV SCH (11:49)
[2022-07-24] MEDS: POTASSIUM PHOSPHATE MM 7.5 MMOL in IV NS 0.9% 100 ML IV SCH ×2 (12:28→15:38)
[2022-07-24] MEDS: VANCOMYCIN HCL 0.75 GM in IV D5W 250 ML IV SCH ×4 (12:38→23:59)
[2022-07-24] MEDS: IV NS 0.9% 250 ML IV PRN (14:33)
[2022-07-24] MEDS: JEVITY 1.2 CAL 1,000 ML BOTTLE GT PRN (18:34)
--- NOTE | 2022-07-24 19:30 | NUR ---
END OF SHIFT NOTE: VENT CHANGES TODAY AC 18, 450, P8 CURRENTLY AT 65%. OVERLAY MATTRESS APPLIED TO BED. 1 BM THIS SHIFT NOTED. FENTANYL TITRATED UP TO 150MCG/KG/MIN PER MD ORDERS. PT DESATS EASILY WITH OUT WITHOUT REPOSITIONING. PT IS VERY UNSTABLE.
[2022-07-24] MEDS: FENTANYL CITRAT IV 2,500 MCG in IV NS 0.9% 200 ML IV PRN (19:39)
[2022-07-24] MEDS: AZITHROMYCIN 500 MG in IV D5W 250 ML IV SCH (19:59)
[2022-07-24] MEDS: NOREPINEPHRINE 32 MG in IV NS 0.9% 218 ML IV PRN (19:59)
[2022-07-24 20:50] LABS: C-REACTIVE PROTEIN 26.4 mg/dL (0.0-0.9)
[2022-07-24 21:13] LABS: D-DIMER 35.2 mg/L(FEU (0.17-0.50)
[2022-07-24] MEDS: ACETAMINOPHEN 325 MG TABLET PO PRN (21:32)
[2022-07-25] VITALS (92 sets, daily range): BP systolic 88–124; BP diastolic 36–94
[2022-07-25] MEDS: PROPOFOL 100 ML IV PRN ×4 (02:30→22:00)
[2022-07-25] MEDS: Potassium Chloride 30 MEQ in IV D5/0.45 NACL 1,000 ML IV SCH (03:59)
[2022-07-25 04:20] LABS: BASOPHILS % (AUTO) 0.1 % (0.0-2.0); HEMATOCRIT 22 % (33-45); LYMPHOCYTES % (AUTO) 5.3 % (20.0-44.0); MEAN CORPUSCULAR HGB CONC 31 g/dl (31.0-36.0); MEAN CORPUSCULAR VOLUME 88 fL (82-100); MONOCYTES # (AUTO) 0.6 K/uL (0.1-1.30); MONOCYTES % (AUTO) 3.2 % (2.0-12.0); NEUTROPHILS # (AUTO) 16.7 K/uL (1.8-8.9); NEUTROPHILS % (AUTO) 91.4 % (43.0-81.0); RED BLOOD CELL COUNT(AUTO) 2.51 MIL/uL (4.0-5.2); WHITE BLOOD COUNT (AUTO) 18.3 K/uL (4.3-11.0)
[2022-07-25 04:34] LABS: CALCIUM, SERUM 6.4 mg/dL (8.5-10.1); CREATININE 0.8 mg/dL (0.6-1.3); MAGNESIUM 2.4 mg/dL (1.8-2.4); PHOSPHORUS 2.8 mg/dL (2.5-4.9); POTASSIUM 4.3 mmol/L (3.5-5.1)
[2022-07-25 04:50] LABS: HEMOGLOBIN 6.9 g/dL (11.5-14.8); PLATELET COUNT (AUTO) 30 K/uL (150-450)
[2022-07-25 04:52] LABS: D-DIMER 35.2 mg/L(FEU (0.17-0.50)
[2022-07-25 05:47] LABS: BAND % (MANUAL) 19 % (0.0-5.0); BASOPHILS % (MANUAL) 0 % (0.0-2.0); EOSINOPHILS % (MANUAL) 0 % (0-4); LYMPHOCYTES % (MANUAL) 6 % (16-48); METAMYELOCYTES % 9 % (0-0); MONOCYTES % (MANUAL) 5 % (0-11.0); NEUTROPHILS % (MANUAL) 61 (42-76)
--- NOTE | 2022-07-25 07:20 | NUR ---
ICU OPENING NOTE RECEIVEED REPORT FROM ELLE JACINTO. PATIENT INTUBATED AND SEDATED. PATIENT IS ON MECHANICAL VENTILATOR WITH SETTINGS TOLERATING WELL AT ET 7.5 ,AC 18, TV 450 FI02 80% , PEEP 8. TOLERATING O2 SATURATION AT 100%. PER REPORT, PATIENT IS ON PROPOFOL, FENTANYL AND LEVEOPHED PER MD ORDER. TUBE FEEDING IS ON HOLD DUE TO PENDING PROCEDURE. PICC INTACT AND FLUSHING WELL.MOTLEY CATHETHER IN PLACE. YELLOW COLOR DRAINING TO GRAVITY. TEMP AT 98.[address] SAF[address]Y MEASURES IN PLACE.BED LOCKED AT LOWEST POSITION.
[2022-07-25] MEDS: PANTOPRAZOLE 40 MG VIAL IV SCH (08:26)
[2022-07-25] MEDS: methylPREDNISolone SOD SUCC 125 MG/2ML VIAL IV SCH (08:26)
[2022-07-25] MEDS: FLUDROCORTISONE 0.1 MG TABLET NG SCH (08:26)
[2022-07-25] MEDS: CEFEPIME 2 GM in IV D5W 100 ML IV SCH ×3 (08:27→21:00)
--- NOTE | 2022-07-25 08:30 | NUR ---
RECEIVED CONSENT FROM son FOR BLOOD TRANSFUSION
[2022-07-25 09:04] LABS: ABG BASE EXCESS 4.6 mmol/L; ABG OXYGEN SATURATION 94.4 % (92.0-98.5); ABG PCO2 64.7 mmHg (35.0-45.0); ABG PH 7.307 (7.350-7.450); ABG PO2 81.7 mmHg (75.0-100.0); AaDO2 420.8 mmHg; COHb 1.2 % (0.5-1.5); MetHb 0.3 % (0.0-1.5); PEEP,BG 8 cm H2O; SITE, ABG Left Brachial; VT, ABG 450 mL
--- NOTE | 2022-07-25 09:09 | NUR ---
vent changes below made per dr. damico: vt 475 ml Addendum: 07/25/22 at 0911 by GALILEA LU RT Amended: Links added.
--- NOTE | 2022-07-25 10:00 | NUR ---
rn note called pharmacy that 0900 antibiotic is broken and if able to bring up another one
--- NOTE | 2022-07-25 10:51 | NUR ---
et tube adjustment per dr. damico. from 22 cm to 20 cm ( 2 cm pull out). Addendum: 07/25/22 at 1052 by GALILEA LU RT Amended: Links added.
--- NOTE | 2022-07-25 11:00 | NUR ---
rn note LAB CALLED AND SAID THAT BLOOD WILL TAKE AWHILE BECAUSE ANTIBODY DETECTED IN BLOOD.
[2022-07-25] MEDS: FENTANYL CITRAT IV 2,500 MCG in IV NS 0.9% 200 ML IV PRN (11:02)
[2022-07-25] MEDS: VANCOMYCIN HCL 0.75 GM in IV D5W 250 ML IV SCH ×2 (11:35→23:00)
--- NOTE | 2022-07-25 14:31 | NUR ---
fio2 increased from 80% to 100% fio2 due to 88% spo2 Addendum: 07/25/22 at 1432 by GALILEA LU RT Amended: Links added.
[2022-07-25] MEDS ORDERED: MICAFUNGIN SODIUM 100 MG in IV NS 0.9% 100 ML IV SCH (15:00)
--- NOTE | 2022-07-25 15:28 | NUR ---
vent changes below per dr. damico: rate 22bpm Addendum: 07/25/22 at 1529 by GALILEA LU RT Amended: Links added.
--- NOTE | 2022-07-25 18:40 | NUR ---
call blood bank to follow up on if blood is ready for roller picker. said they sent it to [facility] for antibodies.
[2022-07-25] MEDS: NOREPINEPHRINE 32 MG in IV NS 0.9% 218 ML IV PRN (18:48)
[2022-07-25] MEDS: JEVITY 1.2 CAL 1,000 ML BOTTLE GT PRN (19:09)
[2022-07-25] MEDS: IV NS 0.9% 250 ML IV PRN (19:12)
--- NOTE | 2022-07-25 19:40 | NUR ---
RN CLOSING NOTE PATIENT IN BED,INTUBATED AND SEDATED. PATIENT IS ON VENT WITH ORDERED SETTINGS et 20 AC 22, TV 475 fio2 100, peep 8. PATIENT ON PROPOFOL, FENTANYL AND LEVOPHED DRIP. NO SIGNS OF PAIN OR DISCOMFORT. PATIENT HAS RIGHT UPPER ARM PICC LINE. INTACT AND FLUSHING WELL. NG TUBE RUNNING JEVITY AT 55 ML/HR. NO RESIDUAL VOLUME NOTED. MOTLEY CATHETER IN PLACE. YELLOW COLOR DRAINING TO GRAVITY. PATIENT HAS EDEMA ON UPPER AND LOWER EXTREMITIES.NO KINKS OR OBSTRUCTION. PATIENT ON EXTERNAL TELE MONITOR CURRENTLY SINUS RHYTHM.ALL SAFETY MEASURES IN PLACE.BED LOCKED AT LOWEST POSITION. SIDE RAILS UP X2.
[2022-07-25] MEDS: ACETAMINOPHEN 325 MG TABLET PO PRN (23:52)
[2022-07-26] VITALS (22 sets, daily range): BP systolic 0–134; BP diastolic 0–107
--- NOTE | 2022-07-26 | NUR ---
PRODUCTION MAINTENANCE MECHANIC PT SATURATION [phone] ON 1005 FIO2; CHECK CLERK NOTIFIED. Addendum: 07/26/22 at 0531 by ELLE CROUCH RN 70s
--- NOTE | 2022-07-26 00:20 | NUR ---
WHITE WORK CLEANER RT CALLED FOR DECREASED SATURATIONS WITH NOTED INCREASED PRESSURES; STAT CXR ORDERED.
[2022-07-26] MEDS: Potassium Chloride 30 MEQ in IV D5/0.45 NACL 1,000 ML IV SCH (00:57)
[2022-07-26] MEDS: FENTANYL CITRAT IV 2,500 MCG in IV NS 0.9% 200 ML IV PRN (01:03)
[2022-07-26] MEDS ORDERED: PHENYLEPHRINE 50 MG in IV NS 0.9% 245 ML IV PRN (01:30)
--- NOTE | 2022-07-26 02:00 | NUR ---
CLINICAL DATA PROGRAMMER PT NOTED WITH DECREASED SATURATION; BECOMING ADI; UNABLE TO PALPATE PULSE; ASYSTOLE ON MONITOR. RT AT BEDSIDE. VERENICE MOON CALLED. Addendum: 07/26/22 at 0529 by ELLE CROUCH RN 0200 STILL AWAITING CXR RESULTS WHEN VERENICE MOON WAS CALLED DR LEWIS WAS ASKED TO SEE CXR IN WHICH HE IMMEDIATELY REQUESTED SET UP FOR CHEST TUBE PLACEMENT
[2022-07-26] MEDS ORDERED: EPINEPHRINE (1:1000) 1 MG/ML AMPUL ONE ×2 (02:18→02:20)
[2022-07-26] MEDS ORDERED: PHENYLEPHRINE 10 MG/ML VIAL ONE (02:19)
[2022-07-26] MEDS ORDERED: EPINEPHRINE (1:1000) 5 MG in IV NS 0.9% 245 ML IV PRN ×4 (02:30)
--- NOTE | 2022-07-26 02:30 | NUR ---
ICU/FINISHED GOODS PLANNER RADIOLOGIST, DR ZAMBRANO CALLED TO REPORT RIGHT SIDE PNEMOTHORAX. THIS RESULT WAS GIVEN OPHELIA ALMEIDA
--- NOTE | 2022-07-26 03:00 | NUR ---
SANITATION ASSOCIATE PT NOTED TO BECOME ADI ON MAX LEVO, NICOLLE, EPI DRIPS. CODE BLUE CALLED.
--- NOTE | 2022-07-26 03:14 | NUR ---
SUPERVISOR URANIUM PROCESSING UNABLE TO ACHIEVE ROSC DURING SECOND CODE BLUE PT PRONOUNCED AT 0314.
--- NOTE | 2022-07-26 03:35 | NUR ---
MANAGER NC BODY RELEASED [place] [facility] [place] [id number] S/W AUDI
--- NOTE | 2022-07-26 04:01 | NUR ---
WHITE SHOE RAGGER BODY SIGNED OUT BY ACOUSTICAL TILE PATTERNMAKER MARLENE; CASE [id number]. THEY WILL FOLLOW UP WITH MORTUARY.
--- NOTE | 2022-07-26 04:46 | NUR ---
BUSINESS CENTER ATTENDANT SON AT BEDSIDE TOOK BELONGINGS WITH HIM. WILL CALL LATER TO NURSING OFFICE FOR ASSISTANCE WITH BURIAL. Addendum: 07/26/22 at 0530 by ELLE CROUCH RN MULTIPLE LOOSE PILLS FOUND IN PTS PURSE AND SON AGREED THAT THEY BE THROWN AWAY
--- NOTE | 2022-07-26 06:20 | NUR ---
ARTS THERAPIST SON SABA DE LEÓN [phone] BOYFRIEND MICHEL [phone]
[2022-07-26] MEDS ORDERED: FAMOTIDINE/PF INJ 20 MG/2 ML VIAL IV SCH (09:00)
[2022-07-26] MEDS ORDERED: methylPREDNISolone SOD SUCC 40 MG/ML VIAL IV SCH (09:00)
[2022-07-26 09:07] LABS: IMMUNOGLOBULIN A, SERUM 174 mg/dL (87-352); IMMUNOGLOBULIN G, SERUM 826 mg/dL (586-1602); IMMUNOGLOBULIN M, SERUM 111 mg/dL (26-217)
[2022-07-26] MEDS ORDERED: EPINEPHRINE (1:10,000) SYRINGE 1 MG/10 ML DISP.SYRIN IVP ONE ×2 (09:47→09:49)
[2022-07-26] MEDS ORDERED: SODIUM BICARBONATE SYR 50 MEQ/50 ML DISP.SYRIN IV ONE ×2 (09:48→09:49)
[2022-07-27 11:07] LABS: *SPE A/G RATIO 0.5 (0.7-1.7); *SPE ALPHA-1-GLOBULIN 0.6 g/dL (0.0-0.4); *SPE ALPHA-2-GLOBULIN 1.1 g/dL (0.4-1.0); *SPE BETA GLOBULIN 0.7 g/dL (0.7-1.3); *SPE M-SPIKE Not Observed g/dL (Not Observed)
== END 2022-07-26 05:20 | DRG 720 ==
LOC: ER 19:34 → ICU 21:07
PROVIDERS: ADMIT Nurse Practitioner Acute Care; ATTEND Student in an Organized Health Care Education/Training Program
PROC: 5A1955Z Respiratory Ventilation, Greater than 96 Consecutive Hours (ICD-10-PCS; principal; 2022-07-20)
PROC: 0BH18EZ Insertion of Endotracheal Airway into Trachea, Via Natural or Artificial Opening Endoscopic (ICD-10-PCS; 2022-07-20)
PROC: 5A09357 Assistance with Respiratory Ventilation, Less than 24 Consecutive Hours, Continuous Positive Airway Pressure (ICD-10-PCS; 2022-07-20)
PROC: 02HV33Z Insertion of Infusion Device into Superior Vena Cava, Percutaneous Approach (ICD-10-PCS; 2022-07-20)
PROC: B548ZZA Ultrasonography of Superior Vena Cava, Guidance (ICD-10-PCS; 2022-07-20)
PROC: 5A2204Z Restoration of Cardiac Rhythm, Single (ICD-10-PCS; 2022-07-26)
PROC: 0W9930Z Drainage of Right Pleural Cavity with Drainage Device, Percutaneous Approach (ICD-10-PCS; 2022-07-26)
DX: A41.2 Sepsis due to unspecified staphylococcus (principal); J96.01 Acute respiratory failure with hypoxia; I26.99 Other pulmonary embolism without acute cor pulmonale; N17.0 Acute kidney failure with tubular necrosis; J93.0 Spontaneous tension pneumothorax; D61.818 Other pancytopenia; B49 Unspecified mycosis; J15.9 Unspecified bacterial pneumonia; R65.21 Severe sepsis with septic shock; D69.6 Thrombocytopenia, unspecified; E87.20 Acidosis, unspecified; D63.8 Anemia in other chronic diseases classified elsewhere; I13.0 Hypertensive heart and chronic kidney disease with heart failure and stage 1 through stage 4 chronic kidney disease, or unspecified chronic kidney disease; I50.9 Heart failure, unspecified; I21.A1 Myocardial infarction type 2; Z20.822 Contact with and (suspected) exposure to COVID-19; I27.20 Pulmonary hypertension, unspecified; N18.9 Chronic kidney disease, unspecified; E87.6 Hypokalemia; E87.0 Hyperosmolality and hypernatremia; E87.5 Hyperkalemia; E88.09 Other disorders of plasma-protein metabolism, not elsewhere classified; K76.0 Fatty (change of) liver, not elsewhere classified; J98.11 Atelectasis
CPT/HCPCS: 31720; 36410; 36415; 36600; 71045-TC; 76700-TC; 76770-TC; 80048-TC; 80061-TC; 80076-TC; 80202-TC; 81001; 82024; 82533; 82607-TC; 82728-TC; 82784; 82803-TC; 82962-TC; 83540-TC; 83605-TC; 83735-TC; 83880; 84100-TC; 84155; 84165; 84439-TC; 84443-TC; 84478-TC; 84484-TC; 84703-TC; 85025-TC; 85396; 85730-TC; 86140-TC; 86225; 86235; 86334; 86431-TC; 86706; 86803; 86850-TC; 87040-TC; 87070-TC; 87081-TC; 87086-TC; 87340; 87449; 87806; 92950-TC; 93307-TC; 93970-TC; 94002-TC; 94003-TC; 94640-TC; 94760-TC; 94799-TC; A6253; A6403; C9113; C9803; G0378; J0171; J0330; J0456; J0692; J0696; J1644; J2248; J2370; J2930; J3010; J3370; J3475; J3480; J3490; J7030; J7040; J7050; J7060; J7070; U0003